=== PATIENT | female | born 1935 | race Caucasian/White ===

== ENCOUNTER 2025-02-17 19:23 | Inpatient (IN) | payer MEDICARE, OTHER ==
[~2025-02-17] VITALS: Ht 170.2 cm; Wt 70.3 kg
[~2025-02-17 19:23] MED LIST: AMIT25TA22 PO; ATOR10TA PO; ESCI10TA PO; METO25TA3 PO; RIVA20TA PO
[2025-02-17 20:18] LABS: PLATELET COUNT (AUTO) 237 K/uL (179-408); RED BLOOD CELL COUNT(AUTO) 4.93 MIL/uL (3.63-4.92); RED CELL DISTRIBUTION WIDTH 15.7 % (12.3-17.7); WHITE BLOOD COUNT (AUTO) 9.8 K/uL (3.8-11.8)
[2025-02-17 20:23] LABS: CREATININE 1.3 mg/dL (0.6-1.3); SODIUM SERUM 140 mmol/L (136-145); UREA NITROGEN, BLOOD 59 mg/dL (7-18)
[2025-02-17 20:29] LABS: ASPARTATE AMINOTRANSFERASE 37 U/L (15-37); TOTAL PROTEIN, SERUM 7.5 g/dL (6.4-8.2)
[2025-02-17] MEDS ORDERED: BUPR-96 PO (20:57)
[2025-02-17] MEDS ORDERED: APIX2.5T PO (20:57)
[2025-02-17] MEDS ORDERED: BUME2TAB7 PO (20:57)
[2025-02-17] MEDS ORDERED: CLON0.5T2 PO (20:57)
[2025-02-17] MEDS ORDERED: BUDE10.2 IH (20:57)
[2025-02-17] MEDS ORDERED: VALS40TA4 PO (20:58)
[2025-02-17] MEDS ORDERED: LINA290C PO (20:58)
[2025-02-17] MEDS ORDERED: PANT40TA2 PO (20:58)
[2025-02-17] MEDS ORDERED: METO-358 PO (20:58)
[2025-02-17] MEDS ORDERED: DORZ1DRO7 OP (20:58)
[2025-02-17] MEDS ORDERED: DAPA5TAB PO (20:58)
[2025-02-17] MEDS ORDERED: SPIR25TA6 PO (20:58)
[2025-02-17] MEDS ORDERED: MIRT7.5T10 PO (20:58)
[2025-02-17] MEDS ORDERED: DRON400T PO (20:58)
[2025-02-17] MEDS: NITROGLYCERIN OINT 1 GM PACKET TP ONE (21:15)
[2025-02-17] MEDS ORDERED: MORPHINE SULFATE 4 MG/1 ML DISP.SYRIN ONE (21:26)
[2025-02-17] MEDS: MORPHINE SULFATE 4 MG/1 ML DISP.SYRIN IV ONE (21:32)
[2025-02-17] MEDS ORDERED: ASPIRIN 81 MG TAB.CHEW ONE (21:50)
[2025-02-17] MEDS: ASPIRIN 81 MG TAB.CHEW PO ONE (22:02)
[2025-02-17] MEDS ORDERED: NITROGLYCERIN OINT 1 GM PACKET TP ONE (23:43)
[2025-02-18] VITALS (8 sets, daily range): BP systolic 102–132; BP diastolic 62–76; TEMP 97.5–98.6; O2SAT 93–99
[2025-02-18] MEDS ORDERED: ENOXAPARIN SODIUM 80 MG/0.8 ML DISP.SYRIN SQ ONE (00:46)
[2025-02-18] MEDS: ENOXAPARIN SODIUM 80 MG/0.8 ML DISP.SYRIN SQ ONE (00:49)
[2025-02-18] MEDS ORDERED: ACETAMINOPHEN 325 MG TABLET PO PRN (01:45)
[2025-02-18] MEDS ORDERED: ONDANSETRON 4 MG/2 ML VIAL IV PRN (01:45)
[2025-02-18] MEDS ORDERED: DOSING PER PHARMACY-ENOXAPARIN XX PRN (01:45)
[2025-02-18] MEDS: METOPROLOL SUCCINATE XL 50 MG TAB.SR.24H PO ONE (02:30)
[2025-02-18] MEDS ORDERED: BUMETANIDE 1 MG TABLET PO SCH ×2 (07:30)
[2025-02-18 07:43] LABS: PLATELET COUNT (AUTO) 215 K/uL (179-408); RED BLOOD CELL COUNT(AUTO) 4.50 MIL/uL (3.63-4.92); RED CELL DISTRIBUTION WIDTH 15.4 % (12.3-17.7); WHITE BLOOD COUNT (AUTO) 6.7 K/uL (3.8-11.8)
[2025-02-18 08:05] LABS: CREATININE 1.5 mg/dL (0.6-1.3); SODIUM SERUM 144 mmol/L (136-145); UREA NITROGEN, BLOOD 63 mg/dL (7-18)
[2025-02-18] MEDS ORDERED: ASPIRIN 81 MG TAB.CHEW ONE (08:06)
[2025-02-18] MEDS ORDERED: ESCITALOPRAM OXALATE 10 MG TABLET ONE (08:07)
[2025-02-18] MEDS ORDERED: PANTOPRAZOLE SODIUM 40 MG TABLET.DR PO ONE (08:07)
[2025-02-18] MEDS: ASPIRIN 81 MG TAB.CHEW PO SCH (08:08)
[2025-02-18] MEDS: DAPAGLIFLOZIN PROPANEDIOL 10 MG TABLET PO SCH (08:08)
[2025-02-18] MEDS: ESCITALOPRAM OXALATE 10 MG TABLET PO SCH (08:08)
[2025-02-18] MEDS: buPROPion XL 150 MG TAB.SR.24H PO SCH (08:09)
[2025-02-18] MEDS: PANTOPRAZOLE SODIUM 40 MG TABLET.DR PO SCH (08:09)
[2025-02-18] MEDS ORDERED: VALSARTAN 40 MG TABLET PO SCH ×2 (09:00)
[2025-02-18] MEDS ORDERED: SPIRONOLACTONE 25 MG TABLET PO SCH ×2 (09:00)
[2025-02-18] MEDS ORDERED: DRONEDARONE HYDROCHLORIDE 400 MG TABLET PO SCH ×2 (09:00)
[2025-02-18] MEDS ORDERED: CEFTRIAXONE /D5W 50ML IVPB **ER PYXIS IV ONE (09:15)
[2025-02-18] MEDS: DOXYCYCLINE HYCLATE IV 100 MG in IV DEXTROSE 5% 100 ML IV SCH (09:50)
[2025-02-18] MEDS: ALBUTEROL SULFATE 2.5 MG/ 0.5 ML NEBU NEB SCH (13:34)
[2025-02-18] MEDS: IPRATROPIUM BROMIDE 0.5 MG/2.5 ML NEBU NEB SCH (13:34)
[2025-02-18] MEDS ORDERED: POLY17PO52 PO (14:26)
[2025-02-18] MEDS ORDERED: ERGO125010 PO (14:29)
[2025-02-18] MEDS ORDERED: MELA5TAB20 PO (14:30)
[2025-02-18] MEDS ORDERED: DICL100G61 TP (14:30)
[2025-02-18] MEDS ORDERED: MAGN400T26 PO (14:31)
[2025-02-18] MEDS ORDERED: BISA-79 PO (14:32)
[2025-02-18] MEDS ORDERED: LEVA0.635 IH (14:33)
[2025-02-18] MEDS ORDERED: NETA2.5D3 LEFTEYE (14:34)
[2025-02-18] MEDS ORDERED: IPRA4AER IH (14:35)
[2025-02-18] MEDS ORDERED: ACET-73 PO (14:37)
[2025-02-18] MEDS ORDERED: FURO-152 PO (14:38)
[2025-02-18] MEDS ORDERED: METO25TA6 PO (14:40)
[2025-02-18] MEDS ORDERED: LACT1TAB6 PO (14:56)
[2025-02-18] MEDS: MIRTAZAPINE 15 MG TABLET PO SCH (20:31)
[2025-02-18] MEDS: ATORVASTATIN 10 MG TABLET PO SCH (20:31)
[2025-02-18] MEDS: CLONAZEPAM 0.5 MG TABLET PO SCH (20:31)
[2025-02-18] MEDS: ENOXAPARIN SODIUM 80 MG/0.8 ML DISP.SYRIN SQ SCH (20:40)
[2025-02-18] MEDS ORDERED: MELATONIN 3 MG TABLET PO PRN (21:00)
[2025-02-18] MEDS ORDERED: ENOXAPARIN SODIUM 80 MG/0.8 ML DISP.SYRIN SQ SCH ×2 (21:00)
[2025-02-18] MEDS: MELATONIN 3 MG TABLET PO PRN (21:38)
[2025-02-18] MEDS ORDERED: DOXYCYCLINE HYCLATE 100 MG INJ IV ONE (23:14)
[2025-02-19] VITALS (12 sets, daily range): BP systolic 116–148; BP diastolic 59–76; TEMP 97.5–97.7; O2SAT 91–99
[2025-02-19 07:09] LABS: *BILIRUBIN,URIN NEGATIVE (NEGATIVE); *CLARITY,URINE CLEAR (CLEAR); *COLOR,URINE YELLOW (YELLOW); *KETONES,URINE NEGATIVE (NEGATIVE); *PROTEIN,URINE NEGATIVE (NEGATIVE); *UROBILINOGEN,URINE 0.2 E.U./dl (NORMAL); LEUKOCYTE ESTERASE ,URINE NEGATIVE (NEGATIVE); NITRITE, URINE NEGATIVE (NEGATIVE)
[2025-02-19 07:25] LABS: UGLUCOSE 2+ (NEGATIVE)
[2025-02-19 07:26] LABS: *BLOOD, URINE TRACE (NEGATIVE)
[2025-02-19 07:51] LABS: SQUAMOUS EPITHELIAL CELL,UR FEW /HPF (NONE SEEN); YEAST,URINE BUDDING YEAST /HPF (NONE SEEN)
[2025-02-19] MEDS: FUROSEMIDE 20 MG TABLET PO SCH (08:17)
[2025-02-19] MEDS ORDERED: CLOPIDOGREL 75 MG TABLET PO SCH (09:00)
[2025-02-19] MEDS: APIXABAN 2.5 MG TABLET PO SCH (09:52)
[2025-02-19 10:54] LABS: PLATELET COUNT (AUTO) 220 K/uL (179-408); RED BLOOD CELL COUNT(AUTO) 4.67 MIL/uL (3.63-4.92); RED CELL DISTRIBUTION WIDTH 15.6 % (12.3-17.7); WHITE BLOOD COUNT (AUTO) 8.6 K/uL (3.8-11.8)
[2025-02-19] MEDS: DOXYCYCLINE HYCLATE 100 MG TABLET PO SCH (10:54)
[2025-02-19 11:17] LABS: CREATININE 1.3 mg/dL (0.6-1.3); SODIUM SERUM 138 mmol/L (136-145); UREA NITROGEN, BLOOD 56 mg/dL (7-18)
[2025-02-19] MEDS: MAGNESIUM HYDROXIDE 30 ML LIQUID UDC PO PRN (20:47)
[2025-02-20] VITALS (12 sets, daily range): BP systolic 123–151; BP diastolic 79–88; TEMP 97.4–98; O2SAT 93–98
[2025-02-20 00:12] LABS: ABG BASE EXCESS 0.4 mmol/L (-2.0-3.0); ABG HCO3 23.2 mmol/L (21.0-28.0); ABG PCO2 32.2 mmHg (32.0-45.0); ABG PH 7.476 (7.350-7.450); ABG PO2 66.1 mmHg (83.0-108.0); ABG SITE LEFT RADIAL; ABG TOTAL HEMOGLOBIN 14.1 G/dL (12.0-16.0); AaDO2 94.5 mmHg; FIO2 21.0 %
[2025-02-20] MEDS: BISACODYL 5 MG TABLET.DR PO PRN (06:14)
[2025-02-20 07:25] LABS: PLATELET COUNT (AUTO) 227 K/uL (179-408); RED BLOOD CELL COUNT(AUTO) 5.01 MIL/uL (3.63-4.92); RED CELL DISTRIBUTION WIDTH 15.6 % (12.3-17.7); WHITE BLOOD COUNT (AUTO) 7.9 K/uL (3.8-11.8)
[2025-02-20 07:41] LABS: CREATININE 1.2 mg/dL (0.6-1.3); SODIUM SERUM 136 mmol/L (136-145); UREA NITROGEN, BLOOD 57 mg/dL (7-18)
[2025-02-20] MEDS: DAPAGLIFLOZIN PROPANEDIOL 5 MG TABLET PO SCH (08:07)
[2025-02-20] MEDS: BENZONATATE 100 MG CAPSULE PO PRN (20:42)
[2025-02-21] VITALS (10 sets, daily range): BP systolic 127–153; BP diastolic 74–92; TEMP 97.5–97.9; O2SAT 93–99
[2025-02-21 06:20] LABS: PLATELET COUNT (AUTO) 250 K/uL (179-408); RED BLOOD CELL COUNT(AUTO) 5.09 MIL/uL (3.63-4.92); RED CELL DISTRIBUTION WIDTH 15.9 % (12.3-17.7); WHITE BLOOD COUNT (AUTO) 9.4 K/uL (3.8-11.8)
[2025-02-21 06:41] LABS: CREATININE 1.4 mg/dL (0.6-1.3); SODIUM SERUM 141 mmol/L (136-145); UREA NITROGEN, BLOOD 63 mg/dL (7-18)
[2025-02-21] MEDS ORDERED: DOXY-226 PO (11:05)
[2025-02-22 04:00] VITALS: BP 125/76; TEMP 97.6; O2SAT 96
[2025-02-22 06:39] LABS: PLATELET COUNT (AUTO) 215 K/uL (179-408); RED BLOOD CELL COUNT(AUTO) 4.88 MIL/uL (3.63-4.92); RED CELL DISTRIBUTION WIDTH 15.4 % (12.3-17.7); WHITE BLOOD COUNT (AUTO) 9.6 K/uL (3.8-11.8)
[2025-02-22 07:08] LABS: CREATININE 1.3 mg/dL (0.6-1.3); SODIUM SERUM 140 mmol/L (136-145); UREA NITROGEN, BLOOD 57 mg/dL (7-18)
[2025-02-22 07:35] VITALS: O2SAT 97
[2025-02-22 07:50] VITALS: O2SAT 99
[2025-02-22] MEDS ORDERED: DOXY-226 PO (08:28)
[2025-02-22 11:37] VITALS: BP 139/80; TEMP 97.4; O2SAT 98
[2025-02-22 13:34] VITALS: O2SAT 96
[2025-02-22 13:49] VITALS: O2SAT 99
== END 2025-02-22 15:00 | disposition home health service (06) | DRG 280 ==
LOC: ER 19:25 → TELE3 02-18 00:31 → ICU IN 02-18 02:57 → CCU 02-18 08:03 → TELE-TD3 02-18 10:00 → TELE3 02-19 10:08 → MEDSURG3 02-20 10:30
PROVIDERS: ADMIT Nurse Practitioner Acute Care
PROC: 05HD33Z Insertion of Infusion Device into Right Cephalic Vein, Percutaneous Approach (ICD-10-PCS; principal; 2025-02-18)
DX: I21.4 Non-ST elevation (NSTEMI) myocardial infarction (principal); J96.21 Acute and chronic respiratory failure with hypoxia; E44.1 Mild protein-calorie malnutrition; I31.39 Other pericardial effusion (noninflammatory); I50.22 Chronic systolic (congestive) heart failure; T17.908A Unspecified foreign body in respiratory tract, part unspecified causing other injury, initial encounter; Z99.81 Dependence on supplemental oxygen; Z79.01 Long term (current) use of anticoagulants; I08.1 Rheumatic disorders of both mitral and tricuspid valves; I48.92 Unspecified atrial flutter; J98.11 Atelectasis; I48.20 Chronic atrial fibrillation, unspecified; I48.0 Paroxysmal atrial fibrillation; W44.9XXA Unspecified foreign body entering into or through a natural orifice, initial encounter; Y92.89 Other specified places as the place of occurrence of the external cause; J20.8 Acute bronchitis due to other specified organisms; E88.09 Other disorders of plasma-protein metabolism, not elsewhere classified; I25.5 Ischemic cardiomyopathy; Z95.0 Presence of cardiac pacemaker; U09.9 Post COVID-19 condition, unspecified; Z79.51 Long term (current) use of inhaled steroids; Z79.84 Long term (current) use of oral hypoglycemic drugs; Z79.899 Other long term (current) drug therapy; I25.10 Atherosclerotic heart disease of native coronary artery without angina pectoris
CPT/HCPCS: 36415; 36600; 70490; 71045; 71250; 83735; 84100; 84484; 85025; 87086; 93307; 94640; 94664; 94760; A4606; C1758; G0378; J0696; J1650; J2270; J2919; J3490; J3590